=== PATIENT | male | born 1980 | race African-American/Black ===

== ENCOUNTER 2022-03-06 06:23 | Emergency (ER) | payer MEDICAID ==
[~2022-03-06] VITALS: Ht 170.2 cm; Wt 69.0 kg
[2022-03-06 06:29] VITALS: BP 103/68
[2022-03-06] MEDS ORDERED: ONDANSETRON HCL 4MG/2ML INJ IV ONE (08:45)
[2022-03-06] MEDS ORDERED: MORPHINE SULFATE 4 MG/ML CPJ (NOT FOR IM USE) IV ONE (08:45)
[2022-03-06 10:43] LABS: CLARITY URINE CLEAR (CLEAR); COLOR URINE DARK YELLOW (YELLOW); KETONES URINE 3+ (NEGATIVE); LEUKOCYTE ESTERASE URINE NEGATIVE (NEGATIVE); NITRITE URINE NEGATIVE (NEGATIVE); OCCULT BLOOD URINE NEGATIVE (NEGATIVE); PH URINE 5.5 (4.5-8.0); PROTEIN URINE 1+ (NEGATIVE); SPECIFIC GRAVITY URINE 1.031 (1.005-1.030)
[2022-03-06] MEDS ORDERED: MORPHINE SULFATE 4 MG/ML CPJ (NOT FOR IM USE) IV NR (10:45)
[2022-03-06] MEDS ORDERED: ONDANSETRON HCL 4MG/2ML INJ IV NR (10:45)
[2022-03-06 10:47] LABS: BASOPHILS % 0.6 % (0.0-2.0); HEMATOCRIT. 49.8 % (42.0-52.0); HEMOGLOBIN. 16.7 g/dL (14.0-18.0); LYMPHOCYTES % 35.8 % (20.0-50.0); MEAN CORPUSCULAR HEMOGLOBIN 28.5 pg (28.0-32.0); MEAN CORPUSCULAR VOLUME 84.8 fL (80.0-94.0); MEAN PLATELET VOLUME 9.2 fl (7.4-10.4); MONOCYTES % 8.9 % (2.0-8.0); NEUTROPHILS % 54.7 % (40.0-76.0); PLATELET 190 x1000/uL (130-400); RED BLOOD CELL COUNT 5.87 mill/uL (4.7-6.1); RED CELL DISTRIBUTION WIDTH 12.6 % (11.6-14.6)
[2022-03-06 11:02] LABS: CHLORIDE 101 mEq/L (98-107)
[2022-03-06] MEDS ORDERED: ONDA4TAB50 MT (11:26)
[2022-03-06] MEDS ORDERED: LACT1CAP78 MT (11:26)
[2022-03-06] MEDS ORDERED: TOPUD PO (11:26)
== END 2022-03-06 11:33 | disposition home or self-care (01) ==
LOC: ER 06:23
DX: K52.9 Noninfective gastroenteritis and colitis, unspecified (principal); F12.10 Cannabis abuse, uncomplicated
CPT/HCPCS: 36415; 74176; 80053; 81003; 83690; 85025; 93005; 96374; 96375; 99285; J2270; J2405